=== PATIENT | female | born 1980 | race American Indian/Alaskan Native ===

== ENCOUNTER 2021-12-13 07:49 | Emergency (ER) | payer OTHER ==
[2021-12-13] MEDS ORDERED: ACETAMINOPHEN 500 MG TAB PO ONE (09:43)
[2021-12-13] MEDS ORDERED: SODIUM CHLORIDE 0.9% 1000 ML 1,000 ML IV ONE ×2 (09:43→10:20)
[2021-12-13] MEDS ORDERED: ONDANSETRON 4 MG/2 ML INJ IV ONE (09:43)
[2021-12-13 09:46] LABS: Bacteria,Urine 2+ /HPF (Negative); Hyaline Casts,Urine 8 /LPF; Mucus,Urine 3+ /HPF
[2021-12-13 09:53] LABS: HCG Qualitative,Urine Negative (Negative)
[2021-12-13 09:59] VITALS: BP 152/80
[2021-12-13 10:01] LABS: Hematocrit 41.6 % (30.3-42.9); Mean Corpuscular HGB Conc 34 % (30-34); Mean Corpuscular Volume 79 fl (79-97); Platelet Count 239 K/mm3 (140-440); Red Blood Count 5.26 M/mm3 (3.65-5.03); Red Cell Distribution Width 14.4 % (13.2-15.2)
[2021-12-13] MEDS ORDERED: cefTRIAXone/NS 1 GM/50 ML 1 GM/50 ML BAG IV ONE (10:08)
[2021-12-13 10:14] LABS: Alanine Aminotransferase 29 units/L (7-56); Albumin 4.6 g/dL (3.9-5); Blood Urea Nitrogen 5 mg/dL (7-17); Calcium 8.9 mg/dL (8.4-10.2); Hemolysis Index 1
[2021-12-13 10:18] LABS: BUN/Creatinine Ratio 10
[2021-12-13 10:23] LABS: Bilirubin,Urine Negative (Negative); Color,Urine Yellow (Yellow)
[2021-12-13 10:24] LABS: Blood,Urine Negative (Negative)
--- NOTE | 2021-12-13 10:28 | Emergency Department Report ---
ED N/V/D HPI - General Chief complaint: Nausea/Vomiting/Diarrhea Stated complaint: VOMIT/DIARRHEA Time Seen by Provider: 12/13/21 09:21 Source: patient Mode of arrival: Ambulatory Limitations: No Limitations - Related Data Previous Rx's Medication Instructions Recorded Last Taken Type Sulfamethoxazole/Trimethoprim 1 each PO BID #10 tablet 12/13/21 Unknown Rx [Bactrim DS TAB] Allergies Allergy/AdvReac Type Severity Reaction Status Date / Time No Known Allergies Allergy Verified 12/13/21 08:10 ED Review of Systems ROS: Stated complaint: VOMIT/DIARRHEA Other details as noted in HPI Comment: All other systems reviewed and negative ED Past Medical Hx - Past Medical History Previous Medical History?: No - Surgical History Past Surgical History?: Yes Additional Surgical History: - Family History Family history: no significant - Social History Smoking Status: Never Smoker Substance Use Type: None - Medications Home Medications: Home Medications Medication Instructions Recorded Confirmed Last Taken Type Sulfamethoxazole/Trimethoprim 1 each PO BID #10 tablet 12/13/21 Unknown Rx [Bactrim DS TAB] ED Physical Exam - General Limitations: No Limitations General appearance: alert, in no apparent distress - Head Head exam: Present: atraumatic, normocephalic - Eye Eye exam: Present: normal appearance - ENT ENT exam: Present: mucous membranes moist - Neck Neck exam: Present: normal inspection - Respiratory Respiratory exam: Present: normal lung sounds bilaterally. Absent: respiratory distress - Cardiovascular Cardiovascular Exam: Present: regular rate, normal rhythm. Absent: systolic murmur, diastolic murmur, rubs, gallop - GI/Abdominal GI/Abdominal exam: Present: soft, normal bowel sounds - Extremities Exam Extremities exam: Present: normal inspection - Back Exam Back exam: Present: normal inspection - Neurological Exam Neurological exam: Present: alert, oriented X3 - Psychiatric Psychiatric exam: Present: normal affect, normal mood - Skin Skin exam: Present: warm, dry, intact, normal color. Absent: rash ED Course Vital Signs 12/13/21 12/13/21 08:06 09:59 Temperature 99.8 F H 99 F Pulse Rate 116 H 104 H Respiratory 16 18 Rate Blood Pressure 138/78 Blood Pressure 152/80 [Right] O2 Sat by Pulse 98 100 Oximetry ED Medical Decision Making - Lab Data Result diagrams: 12/13/21 09:05 12/13/21 09:05 - Medical Decision Making Vital Signs 12/13/21 12/13/21 08:06 09:59 Temperature 99.8 F H 99 F Pulse Rate 116 H 104 H Respiratory 16 18 Rate Blood Pressure 138/78 Blood Pressure 152/80 [Right] O2 Sat by Pulse 98 100 Oximetry Labs 12/13/21 12/13/21 12/13/21 09:05 09:05 09:20 WBC 5.0 RBC 5.26 H Hgb 14.0 Hct 41.6 MCV 79 MCH 27 L MCHC 34 RDW 14.4 Plt Count 239 Sodium 131 L Potassium 3.7 Chloride 100.1 Carbon Dioxide 20 L Anion Gap 15 BUN 5 L Creatinine 0.5 L Estimated GFR > 60 BUN/Creatinine Ratio 10 Glucose 90 Calcium 8.9 Total Bilirubin 0.30 AST 20 ALT 29 Alkaline Phosphatase 61 Total Protein 8.4 H Albumin 4.6 Albumin/Globulin Ratio 1.2 Lipase 24 Urine Color Yellow Urine Turbidity Slightly cloudy Urine pH 5.0 Ur Specific [place] 1.030 Urine Protein 100 mg/dl Urine Glucose (UA) Negative Urine Ketones Negative Urine Blood Negative Urine Nitrite Negative Ur Reducing Substances Not Reportable Urine Bilirubin Negative Urine Ictotest Not Reportable Urine Urobilinogen 0.0 Ur Leukocyte Esterase Moderate Urine WBC (Auto) 130.0 H Urine RBC (Auto) 32.0 U Epithel Cells (Auto) 31.0 H Urine Bacteria (Auto) 2+ Hyaline Casts 8 Urine Mucus 3+ Urine Yeast (Budding) 2+ Urine HCG, Qual Negative Critical care attestation.: If time is entered above; I have spent that time in minutes in the direct care of this critically ill patient, excluding procedure time. ED Disposition Clinical Impression: UTI (urinary tract infection) Disposition: 01 HOME / SELF CARE / HOMELESS Is pt being admited?: No Does the pt Need Aspirin: No Condition: Stable Instructions: Urinary Tract Infection, Adult Additional Instructions: Stay well-hydrated with water. Motrin and/or Tylenol for pain. Antibiotic as ordered today until gone. Activity as tolerated Follow-up with PCP in 48 hours to make sure you are getting better. There is a referral below Referrals: PRIMARY MD KERVIN [Primary Care Provider] - 3-5 Days LD DENTON MD [Staff Physician] - 3-5 Days Forms: Work/School Release Form(ED) Time of Disposition: 13:49
--- NOTE | 2021-12-16 18:41 | Electrocardiograph Report ---
[facility] Test Date: 2021-12-13 Test Time: 08:12:42 Pat Name: JANET BRITO Department: Room: Gender: F Subscription Clerk: DOMINGA : 1980 Requested By: NOREEN GALEANA Order Number: [id number] Reading MD: Geoffrey Raphael Measurements Intervals [place] Rate: 110 P: 54 CA: 149 QRS: 65 QRSD: 70 T: 2 QT: 312 QTc: 421 Interpretive Statements Sinus tachycardia No previous ECG available for comparison Electronically Signed On 12-16-2021 18:41:25 EDT by Geoffrey Raphael
== END 2021-12-13 15:07 | disposition home or self-care (01) ==
LOC: ED 07:49
DX: N39.0 Urinary tract infection, site not specified (principal)
CPT/HCPCS: 36415; 80053; 81001; 81025; 83690; 85027; 93005; 96361; 96365; 96375; 99283; J0696; J2405; J7030